=== PATIENT | female | born 1985 | race Caucasian/White ===

== ENCOUNTER 2016-11-30 15:36 | Emergency (ER) | payer OTHER ==
[2016-11-30] MEDS ORDERED: oxyCODONE/Acetamin 5/325 MG* TAB PO ONE (17:59)
--- NOTE | 2016-11-30 18:52 | RAD ---
Indication: LEFT facial pain with symptoms for a couple of months with worsening. No neurologic deficits evident on clinical exam. Comparison: None. Technique: Noncontrast CT vertex of skull through foramen magnum. Report: The sulci, ventricles, and basal cisterns are normal for age. Rogers matter white matter differentiation is preserved without evidence for edema. No intra or extra axial hemorrhage, mass, or fluid collection detected. Unremarkable orbital contents. Unremarkable calvarium and skull base. Unremarkable scalp. The visualized paranasal sinuses and mastoid air spaces are clear. IMPRESSION: Negative unenhanced head CT.
--- NOTE | 2016-11-30 18:52 | ED ---
Throat Pain/Nasal Congestion - HPI Summary HPI Summary: 31 F presents with left sided facial pain that started a month ago. The pain comes and goes and is located as she describes in a line by her eye and another by her mouth. She states it is a sharp pain. She states that the pain has been occurring more frequently. She also states that she is started to fell dental pain that started two weeks ago. She denies any fever, SOB, swelling around eye, or pain with eye movement. She denies any weakness or decrease in sensation. She states nothing triggers the pain. She does not have a history of neuralgia. She denies any trauma to the area. - History of Current Complaint Chief Complaint: EDFacialInjury Time Seen by Provider: 11/30/16 17:23 - Allergies/Home Medications Allergies/Adverse Reactions: Allergies Allergy/AdvReac Type Severity Reaction Status Date / Time Sertraline [From Zoloft] Allergy See Comment Verified 08/28/13 14:11 PMH/Surg Hx/FS Hx/Imm Hx Endocrine/Hematology History: Denies: Hx Anticoagulant Therapy EENT History: Denies: Hx Hearing Aid - Surgical History Surgery Procedure, Year, and Place: esure Infectious Disease History: No Infectious Disease History: Denies: Traveled Outside the [place] in Last 30 Days - Family History Known Family History: Positive: Hypertension - Social History Alcohol Use: Rare Substance Use Type: Reports: None Smoking Status (MU): Never Smoked Tobacco Review of Systems Negative: Fever Positive: Dental Pain, Other - left sided facila pain Negative: Chest Pain Negative: Shortness Of Breath All Other Systems Reviewed And Are Negative: Yes Physical Exam Triage Information Reviewed: Yes Vital Signs On Initial Exam: Initial Vitals Temp Pulse Resp BP Pulse Ox 98.1 F 79 16 122/81 100 11/30/16 15:57 11/30/16 15:57 11/30/16 15:57 11/30/16 15:57 11/30/16 15:57 Vital Signs Reviewed: Yes Appearance: Positive: Well-Appearing Skin: Positive: Warm, Dry Head/Face: Positive: Normal Head/Face Inspection Eyes: Positive: Normal, EOMI, HIGINIO, Conjunctiva Clear ENT: Positive: Normal ENT inspection, Pharynx normal, TMs normal Dental: Negative: Percussion Tenderness @ - 14 where tooth is missing, Abscess @ , Bleeding Neck: Positive: Supple, Nontender, No Lymphadenopathy Respiratory/Lung Sounds: Positive: Clear to Auscultation, Breath Sounds Present Cardiovascular: Positive: Normal, RRR Musculoskeletal: Positive: Other - full ROM of jaw, nontender over cheek Neurological: Positive: Sensory/Motor Intact, Alert, Oriented to Person Place, Time, CN Intact II-III Diagnostics - Vital Signs Vital Signs Temp Pulse Resp BP Pulse Ox 11/30/16 15:57 98.1 F 79 16 122/81 100 - Laboratory Lab Statement: Any lab studies that have been ordered have been reviewed, and results considered in the medical decision making process. - CT head CT Interpretation: No Acute Changes CT Interpretation Completed By: Radiologist EENT Course/Dx - Course Course Of Treatment: 31 F presents with left sided facial pain, describes as sharp located under ear and above lip, comes and goes for a month states also developing dental pain for 2 weeks, neuro exam normal, has tenderness to where tooth 14 should have been but no visible abscess, CT was normal, discussed likely trigeminal neuralgia as pain follows nerve root will treat with carbazapemine and have follow up with primary, since has dental pain too could be caused by trigeminal neuraglia but discussed that will give antibiotics to ensure no infection and follow up with dentist, patient agrees with plan - Differential Diagnoses Differential Diagnoses: Dental Abscess, Dental Caries, Sinusitis, Trigeminal Neuralgia, TMJ Syndrome - Diagnoses Provider Diagnoses: Facial pain, Pain, dental Discharge - Discharge Plan Condition: Good Disposition: HOME Prescriptions: Penicillin VK TAB* [Penicillin Vk Tab*] 500 mg PO QID #28 tab carBAMazepine TAB(*) [Tegretol TAB(*)] 200 mg PO BID #16 tab oxyCODONE/Acetamin 5/325 MG* [Percocet 5/325 TAB*] 1 tab PO Q6H PRN #12 tab MDD 4 PRN Reason: Pain Patient Education Materials: Oxycodone/Acetaminophen (By mouth), Carbamazepine (By mouth), Trigeminal Neuralgia (ED) Referrals: Rony Rainey MD [Primary Care Provider] - Additional Instructions: Take antibiotics: 4 times a day for 7 days Take carbamazepine twice a day Use ibuprofen every 6 hours and narcotic for break through magali Follow up with primary and with dentist if dental pain does not improve Return to ED if develop fever, shortness of breath, pain with eye movement or swelling around eye or any new or worsening symptoms
[2016-11-30 19:25] VITALS: BP 122/84
== END 2016-11-30 19:25 | disposition home or self-care (01) ==
LOC: ED 15:36
DX: K08.89 Other specified disorders of teeth and supporting structures (principal); R51 Headache
CPT/HCPCS: 70450; 99282; A9270-GY

== ENCOUNTER 2017-11-04 12:00 | Emergency (ER) | payer MEDICAID ==
[2017-11-04 12:55] LABS: Hematocrit 37 % (35-47); Hemoglobin 12.5 g/dl (12.0-16.0); Mean Corpuscular HGB Conc 34 g/dl (31-36); Mean Corpuscular Hemoglobin 30 pg (27-31); Mean Corpuscular Volume 89 fL (80-97); Mean Platelet Volume 8 um3 (7.4-10.4); Red Blood Count 4.15 10^6/ul (4.0-5.4); Red Cell Distribution Width 14 % (10.5-15); White Blood Count 7.9 10^3/ul (3.5-10.8)
[2017-11-04 13:10] LABS: ALT 11 U/L (7-52); AST 15 U/L (13-39); Alkaline Phosphatase 87 U/L (34-104); Amylase 28 U/L (29-103); Anion Gap 4 mmol/L (2-11); BUN/Creatinine Ratio 23.6 (8-20); Blood Urea Nitrogen 17 mg/dL (6-24); CO2 Carbon Dioxide 25 mmol/L (22-32); Chloride 107 mmol/L (101-111); EGFR African American 120.7 (>60); EGFR Non-African American 93.9 (>60); Glucose 80 mg/dL (70-100); Lipase 39 U/L (11.0-82.0); Potassium 4.2 mmol/L (3.5-5.0); Sodium 136 mmol/L (133-145)
[2017-11-04] MEDS ORDERED: Ondansetron INJ* 2 MG/ML VIAL IV ONE (13:13)
[2017-11-04] MEDS ORDERED: Morphine INJ* 4 MG/ML 1 ML CARPUJECT IV ONE ×2 (13:13)
[2017-11-04 13:43] LABS: C Reactive Protein 11.86 mg/L (< 5.00)
--- NOTE | 2017-11-04 14:20 | RAD ---
Indication: Epigastric pain, shortness of breath. Single frontal view of the chest performed at 1331 hours was reviewed. Comparison is made with previous exam dated September 20, 2012. No mediastinal shift is noted. Heart is of normal size and configuration. Lung boggs appear clear. IMPRESSION: NO ACTIVE CARDIOPULMONARY DISEASE IS NOTED.
--- NOTE | 2017-11-04 14:58 | RAD ---
Indication: Right upper quadrant pain. Real-time sonography of the right upper quadrant was performed. The liver is normal in size. No focal lesions or intrahepatic ductal dilatation is noted. The gallbladder demonstrates multiple gallstones. No pericholecystic fluid or wall thickening is identified. The common duct measures 3.2 mL. The right kidney measures 11.7 x 5.8 x 4.7 cm with no hydronephrosis. Pancreas head, neck and proximal body show no mass or pancreatic duct dilatation. IMPRESSION: Cholelithiasis without evidence of biliary duct dilatation.
[2017-11-04] MEDS ORDERED: diPHENhydraMINE IV* 50 MG/ML 1 ml VIAL (BENADRYL) IV ONE (15:01)
[2017-11-04] MEDS ORDERED: diPHENhydraMINE IV* 50 MG/ML 1 ml VIAL (BENADRYL) ONE ×2 (15:02)
[2017-11-04] MEDS: NS 0.9% 1000 ML* 2,000 ML IV ONE (15:07)
[2017-11-04] MEDS ORDERED: Iohexol 300* (CONTRAST) 10 ML SDV IV ONE (15:55)
--- NOTE | 2017-11-04 16:57 | RAD ---
Indication: Upper abdominal pain. Contrast: Administered 100.1 ml of OMNIPAQUE 300 mg/ml CT of the abdomen and pelvis was performed after oral and IV contrast administration. Coronal and sagittal reconstructed images were obtained. Lung bases demonstrate no pleural fluid, nodules or masses. Heart is of normal size without evidence of pericardial effusion. Liver is normal in size. No focal lesions or intrahepatic ductal dilatation is noted. The spleen is normal in size. No adrenal lesions are noted. The kidneys demonstrate symmetric nephrograms without focal lesions. No retroperitoneal lymphadenopathy is noted. No dilated loops of bowel are noted. The pancreas images no mass or pancreatic duct dilatation. The gallbladder demonstrates multiple high density areas in the gallbladder consistent with gallstones. No pericholecystic fluid or wall thickening is identified. There is however a hyper enhancing liver surrounding the gallbladder fundus. The possibility of hyperemia from cholecystitis should BE considered. Small bowel demonstrates no abnormal dilatation. The colon is filled with stool. CT of the pelvis demonstrates no pelvic adenopathy. Urinary bladder is unremarkable. The uterus and ovaries are unremarkable. Urinary bladder is unremarkable. Diverticulosis without definite evidence of diverticulitis. The appendix is visualized and is normal. The uterus and ovaries are grossly unremarkable. Fallopian tube catheters are in place. No hernias are noted. IMPRESSION: Cholelithiasis without biliary duct dilatation. No evidence of pericholecystic fluid is noted however there is a hyperenhancing liver surrounding the gallbladder fundus. This could be a sign of cholecystitis. Correlation with physical exam is suggested. No other masses or fluid collections are noted.
[2017-11-04] MEDS ORDERED: HYDROmorphone INJ* 1 MG/ML CARPUJECT SYRINGE IV ONE (17:12)
[2017-11-04] MEDS ORDERED: O ndansetron ODT 4MG 2TAB PRPK 4 MG PAK PO ONE ×2 (18:22)
--- NOTE | 2017-11-04 18:22 | ED ---
Geovany Garcia Natalie, scribed for Sathya Munoz MD on 11/04/17 at 1316 . Abdominal Pain/Female - HPI Summary HPI Summary: The pt is a 32 y/o F presenting to the ED c/o abd pain starting this morning when she woke up. The pain starts in epigastric region radiating to RUQ and LUQ. The pain is rated 10/10.The pain is described as off and on burning, that has started 12 years ago after giving . The pain has worsened since this morning. The pain is aggravated by nothing and is alleviated by nothing. 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 Pt additionally c/o loss of appetite, difficulty breathing, and chills. Pt denies blood in stool, fever, and lightheadedness. She has not had her gallbladder removed, but she had C Caesarean-section. She has hx of IBS. The patient is allergic to Zofran. - History of Current Complaint Chief Complaint: EDAbdPain Stated Complaint: ABD PAIN Time Seen by Provider: 11/04/17 12:57 Hx Obtained From: Patient Onset/Duration: Sudden Onset, Lasting Hours - started this morning when she woke up, Still Present Timing: Constant Severity Initially: Severe Severity Currently: Severe Pain Intensity: 10 Pain Scale Used: 0-10 Numeric Radiates: Yes Radiates to: Other - RUQ and LUQ Character: Burning Aggravating Factor(s): Nothing Alleviating Factor(s): Nothing Associated Signs and Symptoms: Positive: Decreased Appetite, Other: - POSITIVE: difficulty breathing, chills; NEGATIVE: lightheadedness. Negative: Fever, Blood in Stool Allergies/Adverse Reactions: Allergies Allergy/AdvReac Type Severity Reaction Status Date / Time Sertraline [From Zoloft] Allergy See Comment Verified 08/28/13 14:11 PMH/Surg Hx/FS Hx/Imm Hx Previously Healthy: No Endocrine/Hematology History: Denies: Hx Anticoagulant Therapy GI History: Reports: Hx Irritable Bowel Sensory History: Denies: Hx Hearing Aid - Surgical History Surgery Procedure, Year, and Place: esure Infectious Disease History: No Infectious Disease History: Denies: Traveled Outside the [place] in Last 30 Days - Family History Known Family History: Positive: Hypertension Negative: Cardiac Disease - Social History Alcohol Use: Rare Substance Use Type: Reports: None Smoking Status (MU): Never Smoked Tobacco Review of Systems Positive: Chills. Negative: Fever Positive: Other - difficulty breathing Positive: Abdominal Pain - egigastric region radiating to RUQ and LUQ, Other - POSITIVE: loss of appetite; NEGATIVE: blood in stools All Other Systems Reviewed And Are Negative: Yes Physical Exam Triage Information Reviewed: Yes Vital Signs On Initial Exam: Initial Vitals Temp Pulse Resp BP Pulse Ox 96.4 F 93 17 125/87 99 11/04/17 12:01 11/04/17 12:01 11/04/17 12:01 11/04/17 12:01 11/04/17 12:01 Vital Signs Reviewed: Yes Appearance: Positive: Pain Distress - modertae Skin: Positive: Warm, Skin Color Reflects Adequate Perfusion Head/Face: Positive: Normal Head/Face Inspection Eyes: Positive: EOMI, HIGINIO ENT: Positive: Normal ENT inspection Neck: Positive: Supple, Nontender Respiratory/Lung Sounds: Positive: Clear to Auscultation, Breath Sounds Present Cardiovascular: Positive: RRR Abdomen Description: Positive: Soft, Other: - tender in epigastric region, LUQ, RUQ Bowel Sounds: Positive: Present Musculoskeletal: Positive: Normal, Strength/ROM Intact Neurological: Positive: Normal, Sensory/Motor Intact, Alert, Oriented to Person Place, Time Psychiatric: Positive: Affect/Mood Appropriate - Roderick Coma Scale Coma Scale Total: 15 Diagnostics - Vital Signs Vital Signs Temp Pulse Resp BP Pulse Ox 11/04/17 12:01 96.4 F 93 17 125/87 99 - Laboratory Lab Results: Lab Results 11/04/17 11/04/17 Range/Units 12:30 12:30 WBC 7.9 (3.5-10.8) 10^3/ul RBC 4.15 (4.0-5.4) 10^6/ul Hgb 12.5 (12.0-16.0) g/dl Hct 37 (35-47) % MCV 89 (80-97) fL MCH 30 (27-31) pg MCHC 34 (31-36) g/dl RDW 14 (10.5-15) % Plt Count 311 (150-450) 10^3/ul MPV 8 (7.4-10.4) um3 Neut % (Auto) 51.9 (38-83) % Lymph % (Auto) 32.8 (25-47) % Mcpherson % (Auto) 7.1 (1-9) % Eos % (Auto) 7.0 H (0-6) % Baso % (Auto) 1.2 (0-2) % Absolute Neuts (auto) 4.1 (1.5-7.7) 10^3/ul Absolute Lymphs (auto) 2.6 (1.0-4.8) 10^3/ul Absolute Monos (auto) 0.6 (0-0.8) 10^3/ul Absolute Eos (auto) 0.6 (0-0.6) 10^3/ul Absolute Basos (auto) 0.1 (0-0.2) 10^3/ul Absolute Nucleated RBC 0 10^3/ul Nucleated RBC % 0 Sodium 136 (133-145) mmol/L Potassium 4.2 (3.5-5.0) mmol/L Chloride 107 (101-111) mmol/L Carbon Dioxide 25 (22-32) mmol/L Anion Gap 4 (2-11) mmol/L BUN 17 (6-24) mg/dL Creatinine 0.72 (0.51-0.95) mg/dL Est GFR ( Amer) 120.7 (>60) Est GFR (Non-Af Amer) 93.9 (>60) BUN/Creatinine Ratio 23.6 H (8-20) Glucose 80 (70-100) mg/dL Calcium 9.0 (8.6-10.3) mg/dL Total Bilirubin 0.30 (0.2-1.0) mg/dL AST 15 (13-39) U/L ALT 11 (7-52) U/L Alkaline Phosphatase 87 (34-104) U/L Total Protein 7.0 (6.4-8.9) g/dL Albumin 4.0 (3.2-5.2) g/dL Globulin 3.0 (2-4) g/dL Albumin/Globulin Ratio 1.3 (1-3) Amylase 28 L (29-103) U/L Lipase 39 (11.0-82.0) U/L Result Diagrams: 11/04/17 12:30 11/04/17 12:30 Lab Statement: Any lab studies that have been ordered have been reviewed, and results considered in the medical decision making process. - Radiology CXR Xray Interpretation: No Acute Changes - No active cardiopulmonary disease is noted. ED physician has reviewed this report. Radiology Interpretation Completed By: Radiologist - Ultrasound No standard instances Ultrasound Interpretation: Positive (See Comments) - Gallbladder ultrasound. Cholelithiasis without evidence of biliary duct dilatation. ED physician has reviewed this report. Ultrasound Interpretation Completed By: Radiologist Abdominal Pain Fem Course/Dx - Course Course Of Treatment: BP normal. Allergies noted. Medications reviewed. PAIN IMPROVED IN ED WITH PAIN MEDICATIONS. DISCUSSED RESULTS WITH PATIENT, HER AND SURGERY, DR MARTINEZ. AT THIS TIME, NO FEVER, WBC AND BILI/LFTS NL. DISCUSSED ADMISSION VERSES OUT PATIENT F/UJ WITH PATIENT AND HER . THEY DECLINE ADMISSION AND PREFER TO GO HOME WITH OUT PATIENT SURGICAL F/U. THEY UNDERSTAND TO RETURN TO THE EMERGENCY DEPARTMENT FOR ANY WORSENING OF HER CONDITION OR QUESTIONS OR CONCERNS. - Diagnoses Provider Diagnoses: Right upper quadrant abdominal pain, Upper abdominal pain Discharge - Discharge Plan Condition: Stable Disposition: HOME Prescriptions: Omeprazole CAP* [Prilosec CAP* 20 MG] 20 mg PO BID #30 cap. Ondansetron ODT TAB* [Zofran 4 MG Odt TAB*] 4 mg PO Q6H PRN #15 tab.odt PRN Reason: Nausea oxyCODONE/Acetamin 5/325 MG* [Percocet 5/325 TAB*] 1 tab PO Q4H PRN #20 tab MDD 6 PRN Reason: Pain Patient Education Materials: Abdominal Pain (ED), Gallstones (ED), Epigastric Pain (ED) Referrals: [facility] [Provider Group] Rony Rainey MD [Primary Care Provider] - Pito Martinez MD [Medical Doctor] - Additional Instructions: FOLLOW UP WITH YOUR PRIMARY CARE DOCTOR AND SURGERY. RETURN TO THE EMERGENCY DEPARTMENT FOR ANY WORSENING OF YOUR CONDITION; PAIN, FEVER, YOU FEEL ILL, YOU FEEL LIKE PASSING OUT OR QUESTIONS OR CONCERNS. The documentation as recorded by the Geovany acharya Natalie accurately reflects the service I personally performed and the decisions made by me, Sathya Munoz MD.
[2017-11-04] MEDS ORDERED: oxyCODONE/Acetamin 5/325 MG* TAB PO ONE (18:24)
[2017-11-04 18:45] VITALS: BP 107/63
== END 2017-11-04 18:43 | disposition home or self-care (01) ==
LOC: ED 12:00
DX: K80.20 Calculus of gallbladder without cholecystitis without obstruction (principal)
CPT/HCPCS: 36415; 71010; 74177; 76705; 80053; 82150; 83690; 84484; 84702; 85025; 86140; 93005; 96361; 96374; 96375; 96376; 99285; A9270-GY; J1170; J1200; J2270; J2405; Q9967

== ENCOUNTER 2017-11-08 20:40 | Emergency (ER) | payer MEDICAID ==
[2017-11-08] MEDS ORDERED: HYDROcodone/ACETAMIN 5-325 MG* 1 TAB PO ONE ×2 (22:42→23:31)
[2017-11-08 22:54] LABS: Urine Appearance Clear; Urine Blood Negative (Negative); Urine Color Yellow; Urine Ketones Negative (Negative); Urine Protein Negative (Negative); Urine Specific Gravity 1.016 (1.010-1.030); Urine Urobilinogen Negative (Negative)
--- NOTE | 2017-11-09 00:17 | ED ---
Abdominal Pain/Female - HPI Summary HPI Summary: Patient presents to the ED with continuing pain. She was seen 4 days ago: The pt is a 32 y/o F presenting to the ED c/o abd pain starting this morning when she woke up. The pain starts in epigastric region radiating to RUQ and LUQ. The pain is rated 10/10.The pain is described as off and on burning, that has started 12 years ago after giving . The pain has worsened since this morning. The pain is aggravated by nothing and is alleviated by nothing. 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 Pt additionally c/o loss of appetite, difficulty breathing, and chills. Pt denies blood in stool, fever, and lightheadedness. She has not had her gallbladder removed, but she had C Caesarean-section. She has hx of IBS. The patient is allergic to Zofran. Today, she states she has an appt with Dr. Aden (surgery) on Monday. She is unable to wait until Monday without adequate pain control. She denies N/V/C/D currently, although she states she had nausea 1x day ago. Pain is still discretely located over the RUQ and radiates to the R flank. Denies urinary symptoms. Aggravated by nothing, relieved by nothing. - History of Current Complaint Chief Complaint: Tanya Stated Complaint: STOMACHE AND BACK PAIN Time Seen by Provider: 11/08/17 22:11 Hx Obtained From: Patient ?: No Onset/Duration: Sudden Onset Timing: Constant Severity Initially: Moderate Severity Currently: Moderate Pain Intensity: 10 Pain Scale Used: 0-10 Numeric Location: Discrete At: RUQ Radiates: Yes Radiates to: Flank Character: Burning, Cramping Aggravating Factor(s): Food Alleviating Factor(s): Other: - opioids Associated Signs and Symptoms: Positive: Negative - Risk Factors Ectopic Risk Factor: Negative Ovarian Torsion Risk Factor: Negative Allergies/Adverse Reactions: Allergies Allergy/AdvReac Type Severity Reaction Status Date / Time Sertraline [From Zoloft] Allergy See Comment Verified 08/28/13 14:11 PMH/Surg Hx/FS Hx/Imm Hx Previously Healthy: Yes Endocrine/Hematology History: Denies: Hx Anticoagulant Therapy GI History: Reports: Hx Irritable Bowel Sensory History: Denies: Hx Hearing Aid - Surgical History Surgery Procedure, Year, and Place: esure - Immunization History Hx Pertussis Vaccination: No Immunizations Up to Date: Unable to Obtain/Confirm Infectious Disease History: No Infectious Disease History: Denies: Traveled Outside the [place] in Last 30 Days - Family History Known Family History: Positive: Hypertension Negative: Cardiac Disease - Social History Occupation: Employed Full-time Lives: With Family Alcohol Use: Rare Hx Substance Use: No Substance Use Type: Reports: None Hx Tobacco Use: No Smoking Status (MU): Never Smoked Tobacco Review of Systems Constitutional: Negative Negative: Fever, Chills, Fatigue Eyes: Negative Cardiovascular: Negative Respiratory: Negative Positive: Abdominal Pain - RUQ Positive: no symptoms reported, see HPI Musculoskeletal: Negative Skin: Negative Psychological: Normal All Other Systems Reviewed And Are Negative: Yes Physical Exam Triage Information Reviewed: Yes Vital Signs On Initial Exam: Initial Vitals Temp Pulse Resp BP Pulse Ox 99.4 F 75 18 134/70 99 11/08/17 20:43 11/08/17 20:43 11/08/17 20:43 11/08/17 20:43 11/08/17 20:43 Vital Signs Reviewed: Yes Appearance: Positive: Well-Appearing, Well-Nourished Skin: Positive: Warm, Skin Color Reflects Adequate Perfusion Head/Face: Positive: Normal Head/Face Inspection Eyes: Positive: EOMI, HIGINIO Neck: Positive: Supple, No Lymphadenopathy Respiratory/Lung Sounds: Positive: Clear to Auscultation, Breath Sounds Present Cardiovascular: Positive: RRR, Pulses are Symmetrical in both Upper and Lower Extremities Abdomen Description: Positive: Soft - tenderness to the RUQ radiating to the R flank Musculoskeletal: Positive: Normal, Strength/ROM Intact Neurological: Positive: Alert, Oriented to Person Place, Time, Speech Normal Psychiatric: Positive: Normal - Roderick Coma Scale Coma Scale Total: 15 Diagnostics - Vital Signs Vital Signs Temp Pulse Resp BP Pulse Ox 11/08/17 20:43 99.4 F 75 18 134/70 99 - Laboratory Lab Results: Lab Results 11/08/17 Range/Units 22:44 Urine Color Yellow Urine Appearance Clear Urine pH 6.0 (5-9) Ur Specific [place] 1.016 (1.010-1.030) Urine Protein Negative (Negative) Urine Ketones Negative (Negative) Urine Blood Negative (Negative) Urine Nitrate Negative (Negative) Urine Bilirubin Negative (Negative) Urine Urobilinogen Negative (Negative) Ur Leukocyte Esterase Negative (Negative) Urine Glucose Negative (Negative) Lab Statement: Any lab studies that have been ordered have been reviewed, and results considered in the medical decision making process. Abdominal Pain Fem Course/Dx - Course Course Of Treatment: Patient presents to the ED for pain control. I have given 3 days of NORCO. She is continue with follow up with Dr. Aden. No new symptoms at this time and continues to deny fevers, sweats or chills. Pain is better with medication, and worse with eating. I have discussed the findings of the CT scan and US. UA obtained and negative. She is OK with discharge and is in stable condition. - Diagnoses Differential Diagnosis: Positive: Gall Bladder Disease Provider Diagnoses: Cholecystitis Discharge - Discharge Plan Condition: Stable Disposition: HOME Prescriptions: oxyCODONE/Acetamin 5/325 MG* [Percocet 5/325 TAB*] 1 tab PO Q4H PRN #20 tab MDD 6 PRN Reason: Pain Patient Education Materials: Cholecystitis (ED) Referrals: Rony Rainey MD [Primary Care Provider] - Pito Martinez MD [Medical Doctor] - Additional Instructions: Please follow up as scheduled with Dr. Aden If you develop worsening pain not well controlled with pain management - return to the ED Avoid fatty foods at this time, as this will worsen your symptoms
[2017-11-09 00:18] VITALS: BP 132/75
== END 2017-11-09 00:10 | disposition home or self-care (01) ==
LOC: ED 20:40
DX: K81.9 Cholecystitis, unspecified (principal); K58.9 Irritable bowel syndrome, unspecified
CPT/HCPCS: 81003; 99282

== ENCOUNTER 2017-11-10 12:47 | Day surgery (SDC) | payer MEDICAID ==
[~2017-11-10 12:47] MED LIST: KETAMINE HCL* 50 MG/ML 10 ML VIAL ONE; Lidocaine 0.5%* 50 ML SDV ONE; Rocuronium* 10 MG/ML VIAL ONE; Ropivacaine (OR use only) 2 MG/ML 1 ML ONE; Succinylcholine* 20 MG/ML 10 ML VIAL ONE; fentaNYL* 50 MCG/ML 2 ML VIAL (100 MCG VIAL) ONE
[2017-11-10] MEDS ORDERED: Bupivacaine 0.25% SDV* 30 ML ONE ×2 (12:49)
[2017-11-10] MEDS ORDERED: ceFOXitin 2 GM IVPREMIX* 2 GM/50 ML BAG ONE ×2 (13:14)
[2017-11-10] MEDS ORDERED: Dexamethasone IV* 4 MG/ML 1 ML (4 MG) ONE ×2 (13:29)
[2017-11-10] MEDS ORDERED: Famotidine IV* 10 MG/ML 2 ML (20 mg) IV ONE (13:29)
[2017-11-10] MEDS ORDERED: Dexamethasone TAB* 4 MG PO ONE (13:29)
[2017-11-10] MEDS ORDERED: Famotidine IV* 10 MG/ML 2 ML (20 mg) ONE ×2 (13:29)
[2017-11-10] MEDS ORDERED: DiMENhydriNATE IV* 50 MG/ML VIAL IV PUSH PRN (13:30)
[2017-11-10] MEDS ORDERED: Neostigmine Methylsulfate* 2 MG/2 ML SYRINGE ONE ×2 (14:12)
[2017-11-10] MEDS ORDERED: Glycopyrrolate IV* 0.2 MG/ML 1 ML VIAL ONE ×2 (14:12)
[2017-11-10] MEDS ORDERED: Ondansetron INJ* 2 MG/ML VIAL ONE ×2 (14:18)
[2017-11-10] MEDS ORDERED: Propofol* 10 MG/ML 20 ML BTL IV PUSH ONE ×2 (14:18)
[2017-11-10] MEDS ORDERED: Ketorolac INJ* 30 MG/ML 1 ML VIAL ONE ×2 (14:18)
[2017-11-10] MEDS ORDERED: Lidocaine 2% PF * 5 ML VIAL ONE ×2 (14:33)
[2017-11-10] MEDS ORDERED: oxyCODONE/Acetamin 5/325 MG* TAB PO PRN ×2 (15:10)
[2017-11-10] MEDS ORDERED: fentaNYL* 50 MCG/ML 2 ML VIAL (100 MCG VIAL) ONE ×2 (15:16)
[2017-11-10] MEDS: fentaNYL* 50 MCG/ML 2 ML VIAL (100 MCG VIAL) IV PRN ×2 (15:17→15:44)
[2017-11-10 16:47] VITALS: BP 109/67
--- NOTE | 2017-12-10 21:50 | OP ---
CC: Rony Rainey MD * DATE OF OPERATION: 11/10/17 - SDS DATE OF : 85 SURGEON: Pito Martinez MD HAT BODY INSPECTOR: HARVEY Sun ANESTHESIOLOGIST: Dr. Padgett. ANESTHESIA: General endotracheal. PRE-OP DIAGNOSIS: Acute cholecystitis. POST-OP DIAGNOSIS: Acute cholecystitis. OPERATIVE PROCEDURE: Laparoscopic cholecystectomy. ESTIMATED BLOOD LOSS: Minimal. IV FLUIDS: Crystalloid. SPECIMENS: Gallbladder. DRAINS: None. COMPLICATIONS: None. COUNTS: The instrument, needle, and sponge counts were correct. DESCRIPTION OF PROCEDURE: The patient was brought to the operating room and placed on the table supine. Sequential compression devices were placed on both lower extremities. General anesthesia was administered. She was positioned and padded properly for the operation. She received appropriate intravenous antibiotics. She was prepped and draped in the usual sterile fashion and time- out was performed. Local anesthetic was infiltrated into the skin and soft tissue prior to making each incision. The patient's abdomen was entered through transumbilical incision using an open technique. After accessing the peritoneal cavity, a 5- mm trocar was placed, carbon dioxide was insufflated to a pressure of 15 mmHg. Under direct visualization, a two 5-mm trocars were placed in the right upper quadrant and a 12- mm trocar was placed in the subxiphoid position. The patient was positioned appropriately and the gallbladder was identified. It appear to have mild acute inflammatory changes. The fundus was grasped and retracted superiorly and the infundibulum was retracted laterally and inferiorly and peritoneum investing the gallbladder was dissected free from the gallbladder wall. Using combination of sharp and blunt dissection, the cystic duct and cystic artery each dissected out and clipped and divided. Gallbladder was freed from its attachments to the liver using the cautery and sharp dissection staying in the avascular plane. After the gallbladder was freed, it was placed into an endoscopic retrieval bag and retrieved through the subxiphoid port site. Inspection then revealed hemostasis to be excellent and clips were intact. The wounds were then closed with subcuticular sutures of 4- 0 Monocryl. The wounds were dressed with Steri-Strips. The patient was extubated uneventfully and transferred to Recovery in stable condition. [id number]/[facility] #: [id number] [facility]
== END 2017-11-10 17:39 | disposition home or self-care (01) ==
LOC: OR 12:47
PROVIDERS: ATTEND Surgery
DX: K80.12 Calculus of gallbladder with acute and chronic cholecystitis without obstruction (principal); F17.210 Nicotine dependence, cigarettes, uncomplicated; Z68.37 Body mass index [BMI] 37.0-37.9, adult
CPT/HCPCS: 88304; J0330; J0694; J1100; J1885; J2405; J2704; J2795; J3010

== ENCOUNTER 2019-05-19 21:23 | Emergency (ER) | payer OTHER ==
--- OUTSIDE RECORDS SUMMARY | 2019-05-19 21:41 | XMS REPORT | Continuity of Care Document ---
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 20.5-51.1 [place]% 5.9 % 1.7-9.3 Comprehensive Metabolic 08/24/2017 Simeon Leslie(fma) Sodium 148 mEq/L 134-149 Prof Potassium 4.6 mEq/L 3.6-5.5 Chloride 105 mEq/L 94-112 Carbon Dioxide 25 mEq/L 21-32 Glucose 99 mg/dL 70-105 BUN 14 mg/dL 6-26 Creatinine 0.6 mg/dL 0.6-1.4 BUN/Creat Ratio 23.3 CALC 8.0-36.0 Calcium 10.0 mg/dL 8.6-10.2 Total Protein 6.6 g/dL 6.4-8.3 Albumin 4.3 g/dL 3.8-5.5 Globulin 2.3 g/dL 2.0-4.8 A/G Ratio 1.9 CALC 0.6-2.3 Alk. Phosphatase 70 U/L 30-110 Alt (SGPT) 10 U/L 7-35 Ast (Sgot) 16 U/L 5-34 Total Bilirubin 0.3 mg/dL 0.2-1.3 GFR Non- >60 ml/min/1.73m^ >=60 GFR >60 ml/min/1.73m^ >=60 Laboratory test 08/24/2017 [facility] RPR Non Reactive Non Reactive 29 finding [address] [place] [address] (637)- - FSH, Serum 08/24/2017 [facility] FSH 6.9 mIU/mL 30 [address] [place] [address] (607)- - Chlamydia/GC 08/24/2017 [facility] Chlamydia Negative Negative Amplification [address] [facility] trachomatis, [place] [address] [place] (607)- - Neisseria gonorrhoeae, [place] Negative Negative Laboratory test 08/24/2017 [facility] HIV 1&2 Antibody negative Negative finding (607)- - Screen (Fma) HCV AB non-reactive non-reactive Ua - Micro (Fma) 12/14/2016 [facility] Appearance cloudy (607)- - Color yellow Glucose, Urine (Fma/CMC/CTX) neg Bilirubin neg Ketones trace # SP Grav 1.025 Blood mod # PH 6.0 Protein neg Urobil 0.2 Nitrite pos # Leukocytes (Fma/CMC/[facility]) mod # WBC (Fma,[facility]) >50 # RBC 10-12 # Epith rare /Lpf # Bacteria +4 /Hpf # Urine Culture 12/14/2016 [facility] Urine Culture, Final report Abnormal 31, 32 Routine [address] [facility] [place] [address] (607)- - Result 1 Escherichia coli Abnormal 33 Antimicrobial Susceptibility See Comment: 34 Comprehensive Metabolic 03/09/2015 Simeon Leslie(fma) Sodium 138 mEq/L 134-149 Prof Potassium 4.3 mEq/L 3.6-5.5 Chloride 99 mEq/L 94-112 Carbon Dioxide 23 mEq/L 21-32 Glucose 99 mg/dL 70-105 BUN 15 mg/dL 6-26 Creatinine 0.6 mg/dL 0.6-1.4 BUN/Creat Ratio 25.0 CALC 8.0-36.0 Calcium 9.7 mg/dL 8.6-10.2 Total Protein 8.1 g/dL 6.4-8.3 Albumin 4.5 g/dL 3.8-5.5 Globulin 3.6 g/dL 2.0-4.8 A/G Ratio 1.3 CALC 0.6-2.3 Alk. Phosphatase 86 U/L 30-110 Alt (SGPT) 21 U/L 7-35 Ast (Sgot) 28 U/L 5-34 Total Bilirubin 0.2 mg/dL 0.2-1.3 Laboratory test finding 03/09/2015 Simeon Leslie(fma) TSH 1.18 mIU/L 0.50-6.00 Free T4 1.17 ng/dL 0.75-1.54 CBC Electronic (a) 03/09/2015 [facility] WBC 10.1 High 3.6-9.6 (607)- - RBC 4.07 3.90-5.70 Hemoglobin (Fma/CMC/CTX) 12.1 g/dL 12.1 - 17.2 Hematocrit (Fma/CMC/CTX) 35.7 % Low 36.1 - 50.3 Platelets 342 10^3/ul 150-400 Lymph% 30.5 % 17.0-48.0 Mixed% 5.3 Neutrophils % 64.2 Mean Corpuscular Vol 88 82.2-97.4 Mean Corpuscular Hemoglobin 29.9 27.6-33.3 Mean Corpuscular Hemo Concen 34.1 32.0-36.0 RDW 13.9 High 11.6-13.7 Mean Platelet Volume 6.6 5.5-11.0 Ua - Non Micro ([facility]) 10/23/2013 [facility] Appearance yellow (607)- - Color clear Glucose neg Bilirubin neg Ketones neg SP Grav >=1.030 Blood neg PH 6.5 Protein neg Urobil 1.0 Nitrite neg Leukocytes (Fma/CMC/[facility]) neg Laboratory test 10/23/2013 [facility] Thin Prep SEE [address] W/HPV(Lsil/ARABELLA/Asc) NOTE [place] [phone] [phone] Comprehensive 02/08/2012 Simeon Leslie(a) Albumin 4.6 3.8 Metabolic Prof g/dL -5. 5 Alk. Phos. 118 U/L High 30-110 36 Alt (SGPT) 25 U/L 7-35 Ast (Sgot) 23 U/L 5-34 BUN 20 mg/dL 6-26 Calcium 9.4 mg/dL 8.6-10.2 Chloride 105 mEq/L 94-112 Creatinine 0.7 mg/dL 0.6-1.4 Carbon Dioxide 24 mEq/L 21-32 Glucose 104 mg/dL 70-105 Sodium 141 mEq/L 134-149 Total Bilirubin 0.4 mg/dL 0.2-1.3 Total Protein 7.4 g/dL 6.3-8.1 Potassium 4.5 mEq/L 3.6-5.5 Globulin 2.8 g/dL 2.0-4.8 A/G Ratio 1.6 Calc 0.6-2.2 BUN/Creat Ratio 28.9 Calc 8.0-36.0 Laboratory test finding 02/08/2012 Simeon Leslie([facility]) TSH 1.11 mIU/L 0.50-6.00 CBC Electronic ([facility]) 02/08/2012 [facility] WBC 8.0 3.6-9.6 (607)- - RBC 4.25 3.90-5.70 Hemoglobin (Fma/CMC/CTX) 12.5 g/dL 12.1 - 17.2 Hematocrit (Fma/CMC/CTX) 36.9 % 36.1 - 50.3 Platelets 331 10^3/ul 150-400 Lymph% 33.0 20.5-51.1 Mixed% 4.3 Neutrophils % 62.7 Mean Corpuscular Vol 87 82.2-97.4 Mean Corpuscular Hemoglobin 29.3 27.6-33.3 Mean Corpuscular Hemo Concen 33.7 32.0-36.0 RDW 12.4 11.6-13.7 Mean Platelet Volume 7.6 6.5-11.0 Urinalysis W/Microscopic 08/30/2010 [facility] Ua Color TAMIKO Yellow Appearance-Urine CLEAR Clear Specific [place]-Ur 1.027 1.010-1.030 Esterase-Urine TRACE Abnormal Negative Nitrite NEGATIVE Negative Kfkpusunechg-Uf-CZK NEGATIVE Negative Protein-Urine TRACE Abnormal Negative PH-Urine 6.5 5-9 Blood-Urine NEGATIVE Negative Ketones-Urine TRACE Abnormal Negative Bilirubin-Ur NEGATIVE Negative Glucose-Urine NEGATIVE Negative RBC-Urine 0-2 0-2 Epith Cells-Ur FEW None WBC-Urine 0-4 0-5 Mucus Urine MODERATE None Bacteria-Urine TRACE None Basic Metabolic Profile 05/19/2010 Simeon Leslie([facility]) BUN 6 mg/dL 6-26 Calcium 9.1 mg/dL 8.6-10.2 Chloride 99 mEq/L 94-112 Creatinine 0.6 mg/dL 0.6-1.4 Carbon Dioxide 22 mEq/L 21-32 Glucose 80 mg/dL 70-105 Sodium 139 mEq/L 134-149 Potassium 4.1 mEq/L 3.6-5.5 BUN/Creat Ratio 9.4 Calc 8.0-36.0 Comp Metabolic Panel 05/05/2010 [facility] Sodium 134 mmol/L Low 135-145 Potassium 2.9 mmol/L Low 3.5-5.0 Chloride 107 mmol/L 101-111 Co2 (Carbon Dioxide) 22.0 mmol/L 22-32 Anion Gap 5.0 mmol/L 2-11 37 Glucose 103 mg/dL High 70-100 38 BUN 8 mg/dL 6-24 Creatinine 0.48 mg/dL Low 0.50-1.40 One Over Creatinine 2.00 BUN/Creatinine Ratio 16.7 8-20 Calcium 8.7 mg/dL 8.1-9.9 39 Total Protein 6.5 GM/DL 6.2-8.1 Albumin 3.1 GM/DL Low 3.6-5.4 Globulin 3.4 GM/DL 2-4 Albumin/Globulin Ratio 0.9 Low 1-3 Bilirubin Total 0.4 mg/dL 0.4-1.5 40 Alkaline Phosphatase 82 U/L 30-110 Alt (SGPT) 25 U/L 14-54 Ast (Sgot) 28 U/L 12-42 eGFR Non- 168.9 > 60 eGFR 204.3 > 60 41 Laboratory test finding 05/05/2010 [facility] Troponin-I (TnI) 0 NG/ML 42 CBC With Manual Diff 05/05/2010 [facility] White Blood Count 10.5 CUMM 4.8- 10.8 Red Cell Count 3.56 CUMM Low 4.2-5.4 Hemoglobin 10.5 g/dL Low 12.0-16.0 Hematocrit 32 % Low 35-47 Mean Corpuscular Volume 90 um3 79-97 Mean Corpuscular Hemoglob 30 pg 27-31 Mean Corpuscular HGB Cone 33 g/dL 32-36 Redcell Distribution WDTH 13 % 10.5-15 Platelet Count 280 CUMM 150-450 Mean Platelet Volume 7.5 um3 7.4-10.4 Polysegmented Neutrophil 75 % 38-83 Lymphocyte 22 % Low 25-47 Monocyte 2 % 0-13 Eosinophil 1 % 0-6 Absolute Neutrophil Count 7.8 Anisocytosis SLIGHT Laboratory test 05/05/2010 [facility] D Dimer 243 High Less Than 43 finding Quantitative 230 Wet Prep 03/14/2010 [facility] Wet Prep SMEAR REVIEWED 44 B <SEE NOTE> Laboratory test 03/14/2010 [facility] BHCG Quantitative 15444.0 MIU/ML High 0-5 45 finding Rhogam [id number] <SEE NOTE> 46 GC/Chlamydia Dna Probe 03/14/2010 [facility] GC By Aptima NEGATIVE Negative 47 CHL By Aptima NEGATIVE Negative 48 CBC With Electronic Diff 03/14/2010 [facility] White Blood Count 12.2 CUMM High 4.8-10.8 Stat Red Cell Count 3.65 CUMM Low 4.2-5.4 Hemoglobin 11.6 g/dL Low 12.0-16.0 Hematocrit 33 % Low 35-47 Mean Corpuscular Volume 90 um3 79-97 Mean Corpuscular Hemoglob 32 pg High 27-31 Mean Corpuscular HGB Cone 36 g/dL 32-36 Redcell Distribution WDTH 12 % 10.5-15 Platelet Count 246 CUMM 150-450 Mean Platelet Volume 7.5 um3 7.4-10.4 Gran % 71.7 % 38-83 Lymph % 20.9 % Low 25-47 Mononuclear % 4.9 % 1-9 Eosinophil % 2.2 % 0-6 Basophil % 0.3 % 0-2 Abs Lymphs 2.5 1.0-4.8 Abs Mononuclear 0.6 0-0.8 Absolute Neutrophil Count 8.8 High 1.5-7.7 Abs Eosinophils 0.3 0-0.6 Abs Basophils 0 0-0.2 Protime 03/14/2010 [facility] Inr 1.03 0.97-1.03 49 Protime 12.1 SEC 11.5-12.2 50 Laboratory test 03/14/2010 [facility] PTT (Aptt) 28.8 25.15-38.53 51 finding Type & Screen Urgent 03/14/2010 [facility] Patient Blood Type O NEGATIVE Antibody Screen NEGATIVE Comp Metabolic Panel 03/14/2010 [facility] Sodium 136 mmol/L 135-145 Potassium 3.2 mmol/L Low 3.5-5.0 Chloride 104 mmol/L 101-111 Co2 (Carbon Dioxide) 26.0 mmol/L 22-32 Anion Gap 6.0 mmol/L 2-11 52 Glucose 117 mg/dL High 70-100 53 BUN 8 mg/dL 6-24 Creatinine 0.50 mg/dL 0.50-1.40 One Over Creatinine 2.00 BUN/Creatinine Ratio 16.0 8-20 Calcium 9.0 mg/dL 8.1-9.9 54 Total Protein 6.5 GM/DL 6.2-8.1 Albumin 3.4 GM/DL Low 3.6-5.4 Globulin 3.1 GM/DL 2-4 Albumin/Globulin Ratio 1.1 1-3 Bilirubin Total 0.3 mg/dL Low 0.4-1.5 55 Alkaline Phosphatase 74 U/L 30-110 Alt (SGPT) 24 U/L 14-54 Ast (Sgot) 25 U/L 12-42 eGFR Non- 161.1 > 60 eGFR 194.9 > 60 56 Urinalysis 10/18/2009 [facility] Ua Color YELLOW Appearance-Urine CLEAR Specific [place]-Ur 1.028 1.010-1.030 Esterase-Urine NEGATIVE Negative Nitrite NEGATIVE Negative Qwoopmauuamm-Lp-MIL NEGATIVE Negative Protein-Urine NEGATIVE Negative PH-Urine 6.0 5-9 Blood-Urine NEGATIVE Negative Ketones-Urine NEGATIVE Negative Bilirubin-Ur NEGATIVE Negative Glucose-Urine NEGATIVE Negative Comp Stat 10/18/2009 [facility] Sodium 135 mmol/L 135-145 Potassium 4.2 mmol/L 3.5-5.0 Chloride 104 mmol/L 101-111 Co2 (Carbon Dioxide) 28.0 mmol/L 22-32 Anion Gap 3.0 mmol/L 2-11 57 Glucose 91 mg/dL 70-100 58 BUN 10 mg/dL 6-24 Creatinine 0.80 mg/dL 0.50-1.40 One Over Creatinine 1.20 BUN/Creatinine Ratio 12.5 8-20 Calcium 8.9 mg/dL 8.1-9.9 59 Total Protein 6.9 GM/DL 6.2-8.1 Albumin 4.1 GM/DL 3.6-5.4 Globulin 2.8 GM/DL 2-4 Albumin/Globulin Ratio 1.5 1-3 Bilirubin Total 0.9 mg/dL 0.4-1.5 60 Alkaline Phosphatase 84 U/L 30-110 Alt (SGPT) 15 U/L 14-54 Ast (Sgot) 19 U/L 12-42 eGFR Non- 94.5 > 60 eGFR 114.3 > 60 61 CBC With Electronic Diff Stat 10/18/2009 [facility] White Blood Count 7.1 CUMM 4.8-10.8 Red Cell Count 4.20 CUMM 4.2-5.4 Hemoglobin 12.8 g/dL 12.0-16.0 Hematocrit 38 % 35-47 Mean Corpuscular Volume 90 um3 79-97 Mean Corpuscular Hemoglob 31 pg 27-31 Mean Corpuscular HGB Cone 34 g/dL 32-36 Redcell Distribution WDTH 13 % 10.5-15 Platelet Count 257 CUMM 150-450 Mean Platelet Volume 7.6 um3 7.4-10.4 Gran % 59.4 % 38-83 Lymph % 30.2 % 25-47 Mononuclear % 6.5 % 1-9 Eosinophil % 3.1 % 0-6 Basophil % 0.8 % 0-2 Abs Lymphs 2.1 1.0-4.8 Abs Mononuclear 0.5 0-0.8 Absolute Neutrophil Count 4.2 1.5-7.7 Abs Eosinophils 0.2 0-0.6 Abs Basophils 0.1 0-0.2 GC/Chlamydia Dna Probe 10/18/2009 [facility] GC By Aptima NEGATIVE Negative 62 CHL By Aptima NEGATIVE Negative 63 CBC With Electronic Diff 07/29/2009 [facility] White Blood Count 12.7 CUMM High 4.8-10.8 Stat Red Cell Count 4.28 CUMM 4.2-5.4 Hemoglobin 13.4 g/dL 12.0-16.0 Hematocrit 38 % 35-47 Mean Corpuscular Volume 90 um3 79-97 Mean Corpuscular Hemoglob 31 pg 27-31 Mean Corpuscular HGB Cone 35 g/dL 32-36 Redcell Distribution WDTH 13 % 10.5-15 Platelet Count 259 CUMM 150-450 Mean Platelet Volume 7.9 um3 7.4-10.4 Gran % 73.5 % 38-83 Lymph % 18.0 % Low 25-47 Mononuclear % 6.5 % 1-9 Eosinophil % 1.4 % 0-6 Basophil % 0.6 % 0-2 Abs Lymphs 2.3 1.0-4.8 Abs Mononuclear 0.8 0-0.8 Absolute Neutrophil Count 9.3 High 1.5-7.7 Abs Eosinophils 0.2 0-0.6 Abs Basophils 0.1 0-0.2 Comp Stat 07/29/2009 [facility] Sodium 139 mmol/L 135-145 Potassium 3.8 mmol/L 3.5-5.0 Chloride 103 mmol/L 101-111 Co2 (Carbon Dioxide) 26.0 mmol/L 22-32 Anion Gap 10.0 mmol/L 2-11 64 Glucose 86 mg/dL 70-100 65 BUN 3 mg/dL Low 6-24 Creatinine 0.60 mg/dL 0.50-1.40 One Over Creatinine 1.60 BUN/Creatinine Ratio 5.0 Low 8-20 Calcium 9.5 mg/dL 8.1-9.9 66 Total Protein 6.9 GM/DL 6.2-8.1 Albumin 4.1 GM/DL 3.6-5.4 Globulin 2.8 GM/DL 2-4 Albumin/Globulin Ratio 1.5 1-3 Bilirubin Total 1.0 mg/dL 0.4-1.5 67 Alkaline Phosphatase 100 U/L 30-110 Alt (SGPT) 40 U/L 14-54 Ast (Sgot) 28 U/L 12-42 eGFR Non- 131.7 > 60 eGFR 159.3 > 60 68 Laboratory test 03/16/2007 [facility] Labs URINE C&S See Image Report finding CBC With Electronic 09/26/2006 [facility] White Blood 16.6 CUMM High 4.8-10.8 Diff Stat Count Abs Basophils 0.2 0-0.2 Abs Eosinophils 0.3 0-0.6 Absolute Neutrophil Count 10.5 High 1.5-7.7 Abs Lymphs 4.7 1.0-4.8 Abs Mononuclear 1.0 High 0-0.8 Basophil % 1.0 % 0-2 Hematocrit 35 % 35-47 Hemoglobin 12.0 g/dL 12.0-16.0 Eosinophil % 1.7 % 0-6 Gran % 62.9 % 38-83 Lymph % 28.4 % 20-45 Mean Corpuscular HGB Cone 34 g/dL 32-36 Mean Corpuscular Hemoglob 28 pg 27-31 Mean Corpuscular Volume 82 um3 79-97 Mean Platelet Volume 7.4 um3 7.4-10.4 Mononuclear % 6.0 % 1-9 Platelet Count 399 CUMM 150-450 Red Cell Count 4.24 CUMM 4.2-5.4 Redcell Distribution WDTH 14 % 10.5-15 HCG Qualitative Stat 09/26/2006 [facility] HCG Qualitative NEGATIVE Negative 69 Serum Preg Internal Control OKAY Urinalysis Stat 09/26/2006 [facility] Ua Color YELLOW Appearance-Urine HAZY Bilirubin-Ur NEGATIVE Negative Blood-Urine TRACE Abnormal Negative Esterase-Urine NEGATIVE Negative Glucose-Urine NEGATIVE Negative Ketones-Urine NEGATIVE Negative Nitrite NEGATIVE Negative PH-Urine 5.0 5-9 Protein-Urine NEGATIVE Negative Ohtzadkiftxa-Oj-SDX NEGATIVE Negative Specific [place]-Ur 1.027 1.010-1.030 Urinalysis W/Microscopic Stat 09/26/2006 [facility] Ua Color YELLOW Appearance-Urine HAZY Bacteria-Urine 1+ Bilirubin-Ur NEGATIVE Negative Blood-Urine TRACE Abnormal Negative Epith Cells-Ur MANY Esterase-Urine NEGATIVE Negative Glucose-Urine NEGATIVE Negative Ketones-Urine NEGATIVE Negative Mucus Urine SMALL Nitrite NEGATIVE Negative PH-Urine 5.0 5-9 Protein-Urine NEGATIVE Negative RBC-Urine 2-5 0-2 Drykpcsedzwu-Hy-PXQ NEGATIVE Negative Specific [place]-Ur 1.027 1.010-1.030 Comp Stat 09/26/2006 [facility] One Over Creatinine 1.42 Anion Gap 9.0 mmol/L 2-11 70 Albumin/Globulin Ratio 1.1 1-3 Albumin 3.9 GM/DL 3.6-5.4 Alkaline Phosphatase 106 U/L 40-122 Alt (SGPT) 26 U/L 14-54 Ast (Sgot) 28 U/L 12-42 BUN 12 mg/dL 6-24 Calcium 9.5 mg/dL 8.7-10.2 Chloride 105 mmol/L 101-111 Co2 (Carbon Dioxide) 26.0 mmol/L 22-32 Globulin 3.5 GM/DL 2-4 Glucose 88 mg/dL 70-105 Potassium 3.7 mmol/L 3.5-5.0 Sodium 140 mmol/L 135-145 Bilirubin Total 0.5 mg/dL 0.4-1.5 Total Protein 7.4 GM/DL 6.2-8.1 BUN/Creatinine Ratio 17.1 8-20 Creatinine 0.7 mg/dL 0.5-1.4 1 SERUM 2 This test was developed and its performance characteristics determined by [facility]. It has not been cleared or approved by the U.S. Food and Drug Administration. The FDA has determined that such clearance or approval is not necessary. This test is used for clinical purposes. It should not be regarded as investigational or research. 3 Positive: 5 of the following Borrelia-specific bands: 18,23,28,30,39,41,45,58, 66, and 93. Negative: No bands or banding patterns which do not meet positive criteria. 4 Note: An equivocal or positive EIA result followed by a negative Western Blot result is considered NEGATIVE. An equivocal or positive EIA result followed by a positive Western Blot is considered POSITIVE by the CDC. Positive: 2 of the following bands: 23,39 or 41 Negative: No bands or banding patterns which do not meet positive criteria. Criteria for positivity are those recommended by CDC/ASTPHLD. p23=Osp C, w37=wodqlvjju Note: Sera from individuals with the following may cross react in the L[place] Western Blot assays: other spirochetal diseases (periodontal disease, leptospirosis, relapsing fever, yaws, and pinta); connective autoimmune (Rheumatoid Arthritis and Systemic Lupus Erythematosus and also individuals with Antinuclear Antibody); other infections (Kyle Spotted Fever; German-Ahn Virus, and Cytomegalovirus). 5 IgG titers if 1:64 or greater indicate exposure or acute and convalescent samples showing a four-fold increase, and/or the presence of IgM indicate recent or current infection. 6 HGE IgG levels are detectable 7 to 10 days post infection and persist approximately one year. 7 Due to a reagent backorder, this test was performed using a different assay. The reference interval for this alternate assay is: Negative <1:64 Positive 1:64 or greater IgM levels usually rise 3 to 5 days post infection and fall to normal levels in approximately 30 to 60 days. 8 Negative <0.60 Equivocal 0.60 - 0.69 Positive >0.69 9 The date recorded on the requisition indicates the sample(s) received were greater than 72 hours old upon arrival in our laboratory. 10 RESULTS VERIFIED BY REPEAT ANALYSIS 11 Normal Range 180 to 914 Indeterminate Range 145 to 180 Deficient Range <145 12 Test Performed by: [address] [id number] 13 RESULT: No apparent monoclonal protein on serum electrophoresis. Test Performed by: [address] [id number] 14 REFERENCE VALUE <30.0 (Negative) Test Performed by: [facility] [address] [place] [address] 15 <1:80 (Negative) REFERENCE VALUE <1:80 (Negative) Test Performed by: [facility] [address] [place] [address] 16 ADDITIONAL INFORMATION This test was developed and its performance characteristics determined by [facility] in a manner consistent with CLIA requirements. This test has not been cleared or approved by the U.S. Food and Drug Administration. Test Performed by: [facility] [address] [place] [address] 17 TOXASSURE COMP DRUG ANALYSIS,UR Test Result Flag Units Drug Present Tramadol 789 ng/mg creat O-Desmethyltramadol 1442 ng/mg creat N-Desmethyltramadol 436 ng/mg creat Source of tramadol is a prescription medication. O-desmethyltramadol and N-desmethyltramadol are expected metabolites of tramadol. Test Result Flag Units Ref Range Creatinine 55 mg/dL >=20 Declared Medications: Medication list was not provided. For clinical consultation, please call . 18 3 sst 19 Adult Female: Follicular phase 3.5 - 12.5 Ovulation phase 4.7 - 21.5 Luteal phase 1.7 - 7.7 Postmenopausal 25.8 - 134.8 20 Adult Female: Follicular phase 2.4 - 12.6 Ovulation phase 14.0 - 95.6 Luteal phase 1.0 - 11.4 Postmenopausal 7.7 - 58.5 21 Adult Female: Follicular phase 12.5 - 166.0 Ovulation phase 85.8 - 498.0 Luteal phase 43.8 - 211.0 Postmenopausal <6.0 - 54.7 1st trimester 215.0 - >4300.0 Girls (1-10 years) 6.0 - 27.0 [place] ECLIA methodology 22 1 SST 23 Adult Female: Follicular phase 3.5 - 12.5 Ovulation phase 4.7 - 21.5 Luteal phase 1.7 - 7.7 Postmenopausal 25.8 - 134.8 24 Adult Female: Follicular phase 2.4 - 12.6 Ovulation phase 14.0 - 95.6 Luteal phase 1.0 - 11.4 Postmenopausal 7.7 - 58.5 25 Adult Female: Follicular phase 12.5 - 166.0 Ovulation phase 85.8 - 498.0 Luteal phase 43.8 - 211.0 Postmenopausal <6.0 - 54.7 1st trimester 215.0 - >4300.0 Girls (1-10 years) 6.0 - 27.0 [place] ECLIA methodology 26 Acute inflammation: >10.00 27 <5.0 Negative 5.0 - 25.0 Indeterminate (Repeat testing recommended after 72 hours) >25.0 Positive Perimenopausal women can display HCG levels of up to 20 mIU/mL 28 Because ethnic data is not always readily available, this report includes an eGFR for both -Americans and non- Americans. The National Kidney Disease Education Program (NKDEP) does not endorse the use of the MDRD equation for patients that are not between the ages of 18 and 70, are , have extremes of body size, muscle mass, or nutritional status, or are non- or non-. According to the National Kidney Foundation, irrespective of diagnosis, the stage of the disease is based on the level of kidney function: Stage Description GFR(mL/min/1.73 m(2)) 1 Kidney damage with normal or decreased GFR 90 2 Kidney damage with mild decrease in GFR 60-89 3 Moderate decrease in GFR 30-59 4 Severe decrease in GFR 15-29 5 Kidney failure <15 (or dialysis) 29 1 sst 30 Adult Female: Follicular phase 3.5 - 12.5 Ovulation phase 4.7 - 21.5 Luteal phase 1.7 - 7.7 Postmenopausal 25.8 - 134.8 31 SRC:clean catch 1 hill uri ne top 32 Source of Specimen: clean catch 1 hill uri 33 Escherichia coli Source of Specimen: clean catch 1 hill uri Greater than 100,000 colony forming units per mL 34 Source of Specimen: clean catch 1 hill uri S=Susceptible; I=Intermediate; R=Resistant P=Positive; N=Negative MICS are expressed in micrograms per mL Antibiotic RSLT#1 RSLT#2 RSLT#3 RSLT#4 Amoxicillin/Clavulanic Acid I Ampicillin R Cefepime S Ceftriaxone S Cefuroxime S Cephalothin I Ciprofloxacin S Ertapenem S Gentamicin S Imipenem S Levofloxacin S Nitrofurantoin S Piperacillin R Tetracycline R Tobramycin S Trimethoprim/Sulfa R 35 [facility] [employer] 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 [id number] Requisition #: [id number] CYTOLOGIC INTERPRETATION: SPECIMEN ADEQUACY SATISFACTORY FOR EVALUATION, ENDOCERVICAL TRANSFORMATION ZONE COMPONENT PRESENT GENERAL CATEGORIZATION NEGATIVE FOR INTRAEPITHELIAL LESIONS OR MALIGNANCY RECOMMENDATIONS Refer to the corresponding web sites for 2012 updated general recommendation guidelines of U.S. preventive service task force for cervical cancer screening, and www.asccp.org//uwgsofdjl2540. COMMENTS Thin Prep Pap tests are examined with an FDA approved location-guidance system. PATIENT DATA: SPECIMEN SUBMITTED: * * (HPVII) THIN PREP W/HPV (LSIL/ASC/ARABELLA) * * ENDOCERVICAL RELEVANT HISTORY: LMP: 10/14/2013 Contraceptive: E-SURE Prev.normal: 01/20 ADDITIONAL COPIES SENT TO: Screened/Rescreened Electronically Signed Sign Out Date/Time: by: by: GEOFFREY JONES, 10/24/2013 14:22 CT(ASCP) Note: The Pap smear is a screening test designed to aid in the detection of premalignant and malignant conditions of the uterine cervix. It is not a diagnostic procedure and should not be used as the sole means of detecting cervical cancer. Both false-positive and false-negative reports do occur. 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 36 RESULT KRYSTAL'D 37 Anion gap measurement may be of limited value in the presence of any alkalosis, especially in a combined acid base disorder. . 38 Note change in reference range as of 07/03/08. The change was based on recommendations from the [place] [employer]. 39 Please note change in reference range effective 08 . 40 A metabolite of Naproxen, O-desmethylnaproxen, has been shown to interfere with the Jendrassik-Damari method for measuring total bilirubin. Samples from patients who have taken Naproxen have shown spurious elevation in total bilirubin levels. 41 Because ethnic data is not always readily available, this report includes an eGFR for both -Americans and non- Americans. The National Kidney Disease Education Program (NKDEP) does not endorse the use of the MDRD equation for patients that are not between the ages of 18 and 70, are , have extremes of body size, muscle mass, or nutritional status, or are non- or non-. According to the National Kid[employer], irrespective of diagnosis, the stage of the disease is based on the level of kidney function: Stage Description GFR(mL/min/1.73 m(2)) 1 Kidney damage with normal or decreased GFR 90 2 Kidney damage with mild decrease in GFR 60-89 3 Moderate decrease in GFR 30-59 4 Severe decrease in GFR 15-29 5 Kidney failure <15 (or dialysis) 42 New Reference Range and Interpretation effective 08/16/2002 TnI (ng/ml) INTERPRETATION Less Than 0.06 ng/mL NOT SUPPORTIVE OF DIAGNOSIS OF IN 0.06 - 0.50 ng/ml INDETERMINATE: SUGGEST SERIAL STUDIES IF CLINICALLY INDICATED. Greater than 0.5 ng/mL CONSISTENT WITH DIAGNOSIS OF IN . 43 VERBAL TO ASHUARTOLO BY MAXIMILIAN at 2315 on 05/05/10. Results read back accurately. 44 SMEAR REVIEWED BY RKP at 0800 on 03/15/10. MODERATE (1 TO 4/HPF) ABSENT MANY (GREATER THAN 5/HPF) ABSENT 45 * MALES: < 5.0 MIU/ML NON FEMALES < 5.0 MIU/ML APPROX GESTATIONAL AGE APPROX HCG RANGE 0-1 WEEK < 5.0-50 1-2 WEEKS 50-500 2-3 WEEKS 100-5000 3-4 WEEKS 500-10,000 1-2 MONTHS 10,000-200,000 2-3 MONTHS 15,000-100,000 PLEASE NOTE: The intended use of this assay is the quantitative determination of HCG in human serum or plasma for the early detection of . These assays should not be used to diagnose any condition unrelated to . If an HCG level is inconsistent with, or unsupported by, clinical evidence, results should be confirmed by an alternate HCG method. . 46 [id number] RHO TRANSFUSED 03/15/10 0010 47 . A negative result does not preclude the presence of a C.trachomatis or N.gonorrhoeae infection because results are dependent on adequate specimen collection, absence of inhibitors, and sufficient rRNA to be detected. Test results may be affected by improper specimen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
--- OUTSIDE RECORDS SUMMARY | 2019-05-19 21:41 | XMS REPORT | Continuity of Care Document ---
:1985 External Reference #:[id number] Author Name Felipa sewell Care Team Providers Name Role Phone Faye Shin FNP Primary Care Physician Unavailable Payers Date Identification Numbers Payment Provider Subscriber Effective: 2018 Policy Number: [id number] [employer] Radha Salmon PayID: [id number] [address] [address] [place] [address] Problems Active Problems Provider Date Chronic fatigue syndrome Dalton Ayala M.D. Onset: 11/20/2018 Malaise and fatigue Dalton Ayala M.D. Onset: 11/20/2018 Skin sensation disturbance Dalton Ayala M.D. Onset: 11/20/2018 Arthralgia of the pelvic region and thigh Dalton Ayala M.D. Onset: 11/20 Trochanteric bursitis Michaela Valenzuela M.D. Onset: 08/03/2018 Localized, primary osteoarthritis of the Michaela Valenzuela M.D. 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 ETOH Use Rarely consumes alcohol Tobacco Use Start: Unknown Light tobacco smoker (10 or fewer cigarettes/day) Recreational Drug Use Denies Drug Use Smoking Status Reviewed: 05/03/19 Light tobacco smoker (10 or fewer cigarettes/day) Exercise Type/Frequency Exercises regularly Allergies, Adverse Reactions, Alerts Active Allergies Reaction Severity Comments Date Sertraline 11/08/2017 Morphine 11/10/2017 Zoloft 06/08/2018 Nickel 06/08/2018 Tylenol With Codeine 06/08/2018 Inactive Allergies NKDA 12/07/2005 Medications Active Medications SIG Qnty Indications Ordering Provider Date Tramadol HCL 1-2 tablets by Unknown 50mg Tablets mouth every 6 hours as needed pain Doxycycline Take 1 Capsule By Unknown Monohydrate Mouth Twice A Day 100mg Capsules History Medications Ranitidine HCL 1 by mouth twice 90tabs Vassilios 06/08/2018 - 300mg daily MD Catherine 06/08/2018 Tablets No Active Medications Unknown 11/17/2017 - 11/17/2017 Cephalexin 1 by mouth three 15caps Eloisa BJo Ann 11/17/2017 - 500mg times a day EcABY nesbitt 06/08/2018 Capsules Vitamins Multiple 1 PO qd 30caps Sunny SJo Ann 12/07/2005 - Brianne He Unknown Caplets Omeprazole 1 by mouth every Unknown - 20mg day Unknown Capsules DR Ondansetron HCL one by mouth Unknown - 4mg every 8 hours as Unknown Tablets needed for nausea Oxycodone-Acetaminoph 1-2 tabs by Unknown - en mouth every 4-6 Unknown 5-325mg Tablets hours as needed for pain Tizanidine HCL take 1 tablet by Unknown - 4mg mouth every 8 11/19/2018 Tablets hours as needed Naproxen 1 tablet with Unknown - 500mg Tablets food by mouth 11/19/2018 twice a day Tylenol With Codeine 1 tablet by Unknown - #3 mouth every 8 05/31/2018 300-30mg Tablets hours as needed cough Unknown Pain Unknown - Medication 11/19/2018 Medications Administered in Office Medication SIG Qnty Indications Ordering Provider Date Records Fee Michaela Valenzuela M.D. 12/25/2018 Injection Depomedrol 40MG Michaela Valenzuela M.D. 08/03/2018 Injection Vital Signs Date Vital Result Comment 05/03/2019 9:07am Height 59 inches 4'11" Weight 190.00 lb Heart Rate 86 /min BP Systolic 108 mmHg BP Diastolic 76 mmHg BMI (Body Mass Index) 38.4 kg/m2 03/21/2019 10:26am Height 59 inches 4'11" Weight 189.50 lb Heart Rate 105 /min BP Systolic Sitting 112 mmHg BP Diastolic Sitting 82 mmHg Pain Level 10 O2 % BldC Oximetry 98 % BMI (Body Mass Index) 38.3 kg/m2 12/17/2018 8:27am Height 59 inches 4'11" Weight 182.00 lb Heart Rate 78 /min BP Systolic 102 mmHg BP Diastolic 62 mmHg BMI (Body Mass Index) 36.8 kg/m2 11/20/2018 9:16am Height 59 inches 4'11" Weight 189.00 lb Heart Rate 88 /min BP Systolic Sitting 102 mmHg Large adult cuff left arm BP Diastolic Sitting 82 mmHg Large adult cuff left arm Respiratory Rate 16 /min BMI (Body Mass Index) 38.2 kg/m2 08/20/2018 8:42am Height 59 inches 4'11" Weight 200.00 lb BP Systolic 124 mmHg BP Diastolic 80 mmHg Body Temperature 99.1 F BMI (Body Mass Index) 40.4 kg/m2 08/03/2018 9:21am Height 60 inches 5'0" Weight 195.00 lb Heart Rate 76 /min BP Systolic 122 mmHg BP Diastolic 84 mmHg Respiratory Rate 16 /min Pain Level 10 BMI (Body Mass Index) 38.1 kg/m2 06/08/2018 9:12am Height 59 inches 4'11" Weight 204.00 lb BP Systolic Sitting 112 mmHg BP Diastolic Sitting 78 mmHg Pain Level 6 BMI (Body Mass Index) 41.2 kg/m2 11/17/2017 11:07am Heart Rate 78 /min Respiratory Rate 16 /min Body Temperature 99.0 F 11/10/2017 10:10am Height 59 inches 4'11" Weight 165.00 lb Heart Rate 72 /min BP Systolic 117 mmHg BP Diastolic 70 mmHg Respiratory Rate 18 /min Body Temperature 98.7 F BMI (Body Mass Index) 33.3 kg/m2 12/07/2005 8:59am Height 59 inches 4'11" Weight 150.00 lb Heart Rate 80 /min BP Systolic Sitting 100 mmHg left arm, right arm 100/70 BP Diastolic Sitting 72 mmHg left arm, right arm 100/70 BP Systolic Standing 92 mmHg BP Diastolic Standing 76 mmHg BMI (Body Mass Index) 30.3 kg/m2 Results Test Date Facility Test Result H/L Range Note Laboratory test 04/15/2019 [facility] Creatine 123 U/L N 10- 223 1 finding [facility] Kinase(CK) [place] [address] [phone] C Reactive Protein 22.91 mg/L High <8.01 2 Erythrocyte Sed Rate 19 mm/Hr N 0-19 3 Hla B27 04/15/2019 [facility] Hla B27 Negative 4 [place] [address] [phone] Hla B27 Interp See Comment 5 Laboratory test 04/15/2019 [facility] Thyroperoxidase AB 6.77 IU /mL N <9 6 [place] [address] [phone] T3 Free 3.90 pg/mL N 2.5-3.9 7 Aldolase 5.6 U/L <7.7 8 Laboratory test 12/04/2018 [facility] TSH (Thyroid 0.71 mcIU/mL N 0.34-5.60 finding [facility] Stim Horm) [place] [address] [phone] Free T4 (Free Thyroxine) 0.66 ng/dL N 0.61-1.12 Methylmalonic Acid Mma 0.13 nmol/mL <=0.40 9 Vitamin B12 And 12/04/2018 [facility] Vitamin B12 313 pg/mL N 180-914 10 [place] [address] [phone] Folic Acid (Folate) 18.82 ng/mL >3.99 Protein 12/04/2018 [facility] Total 8.1 Abnormal 6.3 - Electrophoresis [facility] Protein(Pep) g/dL 7.9 [place] [address] [phone] Albumin 3.7 g/dL 3.4-4.7 Alpha-1 Globulin 0.3 g/dL 0.1-0.3 Alpha-2 Globulin 1.2 g/dL Abnormal 0.6-1.0 Beta Globulin 1.4 g/dL Abnormal 0.7-1.2 Gamma Globulin 1.5 g/dL 0.6-1.6 Albumin/Globulin Ratio 0.83 Impression See Comment 11 Laboratory test 12/04/2018 [facility] Rheumatoid Factor < 10 IU/ mL N <[address] [place] [address] [phone] Nuclear AB (Rosario) By Ifa Igg <1:80 (Negative) 12 Anti Double Stranded Dna AB <12.3 IU/mL 13 Erythrocyte Sed Rate 47 mm/Hr High 0-14 C Reactive Protein 24.30 mg/L High <8.01 Creatine Kinase(CK) 67 U/L N 10-223 Aldolase 7.4 U/L <7.7 14 Myoglobin 13.7 ng/mL Low 14.3-65.8 Comp Metabolic Panel 11/10/2017 [facility] Sodium 136 mmol/L N 133-[address] [place] [address] [phone] Potassium 4.7 mmol/L N 3.5-5.0 Chloride 101 mmol/L N 101-111 Co2 Carbon Dioxide 31 mmol/L N 22-32 Anion Gap 4 mmol/L N 2-11 Glucose 82 mg/dL N 70-100 Blood Urea Nitrogen 14 mg/dL N 6-24 Creatinine 0.63 mg/dL N 0.51-0.95 BUN/Creatinine Ratio 22.2 High 8-20 Calcium 9.6 mg/dL N 8.6-10.3 Total Protein 6.8 g/dL N 6.4-8.9 Albumin 4.1 g/dL N 3.2-5.2 Globulin 2.7 g/dL N 2-4 Albumin/Globulin Ratio 1.5 N 1-3 Total Bilirubin 0.30 mg/dL N 0.2-1.0 Alkaline Phosphatase 82 U/L N 34-104 Alt 18 U/L N 7-52 Ast 19 U/L N 13-39 Egfr Non- 109.5 >60 Egfr 140.8 >60 15 CBC Auto Diff 11/10/2017 [facility] White Blood 7.4 10^3/uL N 3.5-10.[address] [place] [address] [phone] Red Blood Count 4.08 10^6/uL N 4.0-5.4 Hemoglobin 12.0 g/dL N 12.0-16.0 Hematocrit 36 % N 35-47 Mean Corpuscular Volume 89 fL N 80-97 Mean Corpuscular Hemoglobin 30 pg N 27-31 Mean Corpuscular HGB Conc 33 g/dL N 31-36 Red Cell Distribution Width 15 % N 10.5-15 Platelet Count 321 10^3/uL N 150-450 Mean Platelet Volume 8 um3 N 7.4-10.4 Abs Neutrophils 3.5 10^3/uL N 1.5-7.7 Abs Lymphocytes 2.7 10^3/uL N 1.0-4.8 Abs Monocytes 0.6 10^3/uL N 0-0.8 Abs Eosinophils 0.6 10^3/uL N 0-0.6 Abs Basophils 0.1 10^3/uL N 0-0.2 Abs Nucleated RBC 0 10^3/uL Granulocyte % 47.1 % N 38-83 Lymphocyte % 36.0 % N 25-47 Monocyte % 7.6 % N 1-9 Eosinophil % 8.1 % High 0-6 Basophil % 1.2 % N 0-2 Nucleated Red Blood Cells % 0 Laboratory test finding 11/10/2017 [facility] Amylase 18 U/L [facility] 29-[address] [place] [address] [phone] Please check labs and MRI this week of the lower back 2 Please check labs and MRI this week of the lower back 3 Please check labs and MRI this week of the lower back 4 REFERENCE VALUE Not Applicable 5 RESULT: HLA-B27 antigen was not detected. ADDITIONAL INFORMATION Method: Flow Cytometry Performing Laboratory CLIA# [id number] Test Performed by: [place] [address] 6 Please check labs and MRI this week of the lower back 7 Please check labs and MRI this week of the lower back 8 Test Performed by: [facility] [place] [id number] 9 ADDITIONAL INFORMATION This test was developed and its performance characteristics determined by [facility] in a manner consistent with CLIA requirements. This test has not been cleared or approved by the U.S. Food and Drug Administration. Test Performed by: [address] [address] 10 Normal Range 180 to 914 Indeterminate Range 145 to 180 Deficient Range <145 11 RESULT: No apparent monoclonal protein on serum electrophoresis. Test Performed by: [facility] - [address] [address] 12 <1:80 (Negative) REFERENCE VALUE <1:80 (Negative) Test Performed by: [place] [address] 13 REFERENCE VALUE <30.0 (Negative) Test Performed by: [place] [address] 14 Test Performed by: [address] [address] 15 Because ethnic data is not always readily [...] 15-29 5 Kidney failure <15 (or dialysis) Procedures Date Code Description Status 12/04/2018 71736 Nerve Conduction 05-06 Studies Completed 12/04/2018 74019 Needle Electromyography Complete, Five Or More Muscles Completed Studied 08/03/2018 12659 Injection Single Tendon Origin/Insertion Completed 11/10/2017 34000 Laparoscopy Cholecystectomy Completed 11/10/2017 33725 Laparoscopy Cholecystectomy Completed 10/27/2014 09962288 Mammogram Completed 12/07/2005 72735 EKG Tracing & Interpretation Completed Encounters Type Date Location Provider Dx Diagnosis Office Visit 03/21/2019 Rheumatology Varun Munoz, R70.0 Elevated erythrocyte 10:00a [employer] M.D. sedimentation rate M54.5 Low back pain R53.82 Chronic fatigue, unspecified R53.1 Weakness R05 Cough F17.210 Nicotine dependence, cigarettes, uncomplicated Office Visit 12/17/2018 8:30a [place] [facility] Dalton Ayala, M25.551 Pain in [employer] M.D. right hip M25.552 Pain in left hip M54.5 Low back pain R20.2 Paresthesia of skin R53.82 Chronic fatigue, unspecified R79.82 Elevated C-reactive protein (CRP) R70.0 Elevated erythrocyte sedimentation rate Office Visit 11/20/2018 9:30a [place] [facility] Dalton Ayala, M25.551 Pain in [facility] [employer] M.D. right hip M25.552 Pain in left hip M54.5 Low back pain R20.2 Paresthesia of skin R53.1 Weakness R53.82 Chronic fatigue, unspecified Office Visit 08/20/2018 8:45a [facility] Michaela Valenzuela, M25.551 Pain in right Of C.M.A. M.D. hip M25.552 Pain in left hip M16.12 Unilateral primary osteoarthritis, left hip M16.11 Unilateral primary osteoarthritis, right hip M70.62 Trochanteric bursitis, left hip M70.61 Trochanteric bursitis, right hip M54.5 Low back pain M46.1 Sacroiliitis, not elsewhere classified Office Visit 08/03/2018 9:00a [facility] Michaela Valenzuela, M25.551 Pain in right Of C.M.A. M.D. hip M25.552 Pain in left hip M16.12 Unilateral primary osteoarthritis, left hip M16.11 Unilateral primary osteoarthritis, right hip M70.62 Trochanteric bursitis, left hip M70.61 Trochanteric bursitis, right hip M54.5 Low back pain M46.1 Sacroiliitis, not elsewhere classified Office Visit 06/08/2018 9:30a Neurosurgery Vassilios M54.5 Low back [facility] MD Catherine pain M46.1 Sacroiliitis, not elsewhere classified Office Visit 12/07/2005 9:20a [place] [facility] Qutaybeh S. 780.4 Dizziness & Brianne He Giddiness Plan of Treatment Future Appointment(s):06/13/2019 10:00 am - J Luis Peres NJo AnnPJo Ann at [place] [facility]05/03/2019 - J Luis Peres NSusanM25.551 Pain in right hipM25.552 Pain in left hipR20.2 Paresthesia of skinNew Labs:CSF West Nile Igg/Igm, Ordered: 05/03/19CSF Studies, Ordered: 05/03/19Body Fluid Protein Electrophoresis, Ordered: 05/03/19Lyme Disease CSF, Ordered: 05/03/19Herpes Simplex Virus PCR CSF, Ordered: 05/03/19Cryptococcal Antigen, Ordered: RPR CSF, Ordered: 05/03/19Protein Electrophoresis, Ordered: 05/03/19Basic Metabolic Panel, Ordered: 05/03/19Cytology Non-[employer] At [employer], Ordered: 05/03/19New Orders: Lumbar Puncture, Ordered: 05/03/19Referral:Nick Rivera MD, Interventional Pain UnqxdR99.3 Other [id number] HeadacheNew Xrays:MRI Brain W/O, Ordered: 05/03Follow up:6 weeks call me one week after LP, call me after MRI's to discuss resultsRecommendations:Riboflavin 400mg (vitamin b-2) by mouth Daily.R53.1 WeaknessNew Xrays:MRI Cervical Spine Wo, Ordered: 05/03/19Recommendations:LOBO labs from [facility]29.2 Abnormal reflex
[2019-05-20] MEDS ORDERED: Ketorolac INJ* 30 MG/ML 1 ML VIAL IM ONE (00:13)
--- NOTE | 2019-05-20 00:15 | ED ---
Lower Extremity - HPI Summary HPI Summary: 33-year-old female presents with right knee pain today. She states her knee gave out and she landed on her right knee. She has history of chronic right leg pain. She has seen multiple providers and is still looking for diagnosis. She denies any fevers. No numbness or tingling. She states that her leg feels weak on a chronic basis. States the knee feels like if it is going to give out which is new. - History of Current Complaint Chief Complaint: EDExtremityLower Stated Complaint: FALL RT LEG INJURY PER PT Time Seen by Provider: 05/19/19 23:34 Pain Intensity: 10 - Allergies/Home Medications Allergies/Adverse Reactions: Allergies Allergy/AdvReac Type Severity Reaction Status Date / Time Iodinated Contrast- Oral and Allergy Hives Verified 05/19/19 21:35 IV Dye morphine Allergy Hives Verified 05/19/19 21:35 nickel Allergy Rash Verified 05/19/19 21:35 sertraline Allergy Anxiety/panic Verified 05/19/19 21:35 attack PMH/Surg Hx/FS Hx/Imm Hx Endocrine/Hematology History: Denies: Hx Anticoagulant Therapy, Hx Diabetes Cardiovascular History: Denies: Hx Hypertension, Hx Pacemaker/ICD Respiratory History: Denies: Hx Asthma GI History: Reports: Hx Irritable Bowel, Hx Ulcer History: Denies: Hx Dialysis, Hx Renal Disease Sensory History: Denies: Hx Hearing Aid Neurological History: Reports: Hx Migraine, Other Neuro Impairments/Disorders - PAIN CLINIC PT Psychiatric History: Reports: Hx Anxiety, Hx Depression Denies: Hx Panic Disorder - Surgical History Surgery Procedure, Year, and Place: ESSURE IMPLANT (MRI CONDITIONAL 6, OKAY 1.5T AND 3T NORMAL MODE);. ORAL DENTAL SURGERY EXTRACTION;. ;. CHOLECYSTECTOMY; Infectious Disease History: No Infectious Disease History: Denies: Traveled Outside the [place] in Last 30 Days - Family History Known Family History: Positive: Hypertension Negative: Cardiac Disease - Social History Alcohol Use: None Substance Use Type: Reports: None Smoking Status (MU): Light Every Day Tobacco Smoker Type: Cigarettes Amount Used/How Often: 1/2 PPD Review of Systems Negative: Fever Negative: Chest Pain Negative: Shortness Of Breath Positive: Myalgia - right knee pain All Other Systems Reviewed And Are Negative: Yes Physical Exam Triage Information Reviewed: Yes Vital Signs On Initial Exam: Initial Vitals Temp Pulse Resp BP Pulse Ox 99.8 F 103 16 116/78 96 05/19/19 21:33 05/19/19 21:33 05/19/19 21:33 05/19/19 21:05/19/19 21:33 Vital Signs Reviewed: Yes Appearance: Positive: Well-Appearing Skin: Positive: Warm, Dry Head/Face: Positive: Normal Head/Face Inspection Eyes: Positive: Normal, Conjunctiva Clear ENT: Positive: Pharynx normal Respiratory/Lung Sounds: Positive: Clear to Auscultation, Breath Sounds Present Cardiovascular: Positive: Normal, RRR Musculoskeletal: Positive: Strength/ROM Intact - right knee, Limited @, Other - chronic tenderness right hip and ankle, new tenderness over right knee, minimial edema noted, sensation grossly intact, good pulses Neurological: Positive: Normal Diagnostics - Vital Signs Vital Signs Temp Pulse Resp BP Pulse Ox 05/19/19 21:33 99.8 F 103 16 116/78 96 - Laboratory Lab Statement: Any lab studies that have been ordered have been reviewed, and results considered in the medical decision making process. - Radiology knee pain Radiology Interpretation Completed By: ED Physician Summary of Radiographic Findings: no fracture Lower Extremity Course/Dx - Course Course Of Treatment: 33-year-old female presents with right knee pain today. She states her knee gave out and she landed on her right knee. She has history of chronic right leg pain. She has seen multiple providers and is still looking for diagnosis. She denies any fevers. No numbness or tingling. She states that her leg feels weak on a chronic basis. States the knee feels like if it is going to give out which is new. On exam tenderness over right knee. Has chronic tenderness of the right ankle and hip is unchanged. X-ray read by me as no fracture. gave knee immobilizer. Told to follow up with orthopedic. Patient understands agrees plan. - Diagnoses Differential Diagnosis/HQI/PQRI: Positive: Fracture (Closed), Sprain, Strain Provider Diagnoses: Right knee pain Discharge - Sign-Out/Discharge Documenting (check all that apply): Patient Departure Patient Received Moderate/Deep Sedation with Procedure: No - Discharge Plan Condition: Good Disposition: HOME Patient Education Materials: Knee Pain (ED) Referrals: Rony Rainey MD [Primary Care Provider] - Jett Vincent MD [Medical Doctor] - Additional Instructions: Use immobilizer Stay off knee as much as possible Ice, elevate, Ibuprofen or Tylenol every 6 hours for pain Follow up with ortho if no improvement Return to ED if develop or any new or worsening symptoms - Billing Disposition and Condition Condition: GOOD Disposition: Home
[2019-05-20 00:27] VITALS: BP 111/70
== END 2019-05-20 00:32 | disposition home or self-care (01) ==
LOC: ED 21:23
DX: M25.561 Pain in right knee (principal); F17.210 Nicotine dependence, cigarettes, uncomplicated
CPT/HCPCS: 96372; 99282; J1885